=== PATIENT | male | born 1940 | race Caucasian/White ===

== ENCOUNTER 2020-05-24 11:30 | Emergency (ER) | payer OTHER ==
[~2020-05-24] VITALS: Ht 180.3 cm; Wt 90.7 kg
[2020-05-24] MEDS ORDERED: EPINEPHrine HCL 1 MG/10 ML SYRG IV ONE (11:31)
[2020-05-24] MEDS ORDERED: SODIUM BICARBONATE 8.4% INJ 50ML SYRINGE IV ONE (11:31)
[2020-05-24] MEDS ORDERED: SODIUM BICARBONATE 8.4 % INJ 50ML VIAL IV ONE (11:44)
[2020-05-24 11:50] VITALS: BP 104/19
== END 2020-05-24 12:48 ==
LOC: EDBD 11:30 → ER 11:30
DX: I46.9 Cardiac arrest, cause unspecified (principal); J96.01 Acute respiratory failure with hypoxia; I10 Essential (primary) hypertension
CPT/HCPCS: 92950; 99285; J0171; 93005